=== PATIENT | female | born 1970 | race Caucasian/White ===

== ENCOUNTER 2017-08-07 11:48 | Emergency (ER) | payer MEDICAID | END 2017-08-07 12:43 | disposition home or self-care (01) | LOC: E/R 11:48 | DX: J06.9 Acute upper respiratory infection, unspecified (principal) | CPT/HCPCS: 99283; Z7502 ==

== ENCOUNTER 2018-03-13 04:51 | Emergency (ER) | payer MEDICAID ==
[2018-03-13 06:33] LABS: URINE BLOOD (Dip) POC Negative (NEGATIVE); URINE GLUCOSE (Dip) POC Negative (NEGATIVE); URINE KETONES (Dip) POC Negative (NEGATIVE); URINE LEUKOCYTE EST (Dip) POC Negative (NEGATIVE); URINE NITRITE (Dip) POC Negative (NEGATIVE); URINE TOTAL PROTEIN POC Negative (NEGATIVE)
[2018-03-13] MEDS: ACETAMINOPHEN 500 MG TAB PO (06:37)
== END 2018-03-13 07:06 | disposition home or self-care (01) ==
LOC: FTE 04:51
DX: R51 Headache (principal)
CPT/HCPCS: 81003; 81025; 99282